=== PATIENT | male | born 1990 | race Two or more races ===

== ENCOUNTER 2018-05-18 00:51 | Emergency (ER) | payer OTHER ==
[2018-05-18] MEDS: KETOROLAC 60 MG/2 ML VIAL (J1885) IM (04:00)
== END 2018-05-18 05:35 | disposition home or self-care (01) ==
LOC: M ED 00:51
DX: S09.90XA Unspecified injury of head, initial encounter (principal); W18.39XA Other fall on same level, initial encounter; Y92.148 Other place in prison as the place of occurrence of the external cause
CPT/HCPCS: J1885